=== PATIENT | male | born 1950 | race Caucasian/White ===

== ENCOUNTER 2023-12-04 17:38 | Observation (INO) | payer OTHER ==
[2023-12-04 22:29] LABS: Troponin I Less than 0.010 ng/mL (< 0.028)
[2023-12-04] MEDS ORDERED: Nitroglycerin 0.4 MG TAB (25 Tab Bottle) SL PRN (22:42)
[2023-12-04] MEDS: Rivaroxaban 10 MG TAB PO SCH (23:24)
[2023-12-04] MEDS: Doxepin HCl 10 MG CAP PO SCH (23:24)
[2023-12-04] MEDS: Nitroglycerin 2% Ointment 1 INCH/1 GM Packet TOP SCH (23:25)
[2023-12-05 02:20] VITALS: BMI 24.0
[2023-12-05 03:50] LABS: #Eosinphils 0.4 10x3/uL (0.0-0.5); #Monocytes 0.8 10x3/uL (0.0-1.1); #Neutrophils 6.2 10x3/uL (1.5-8.4); %Basophils 0.4 % (0.0-2.0); %Eosinophils 3.9 % (0.0-6.0); %Lymphocytes 26.1 % (18.0-47.0); %Monocytes 7.7 % (0.0-10.0); %Neutrophils 61.7 % (40.0-75.0); Hematocrit 41.6 % (38.8-50.0); Hemoglobin 13.7 g/dL (13.5-17.5); Mean Corpuscular HGB CONC 32.9 g/dL (32.0-36.0); Mean Corpuscular Hemoglobin 29.1 pg (27.0-33.0); Mean Corpuscular Volume 88.5 fl (81.2-95.1); Mean Platelet Volume 10.4 fl (7.4-10.4); Platelet Count 302 10x3/uL (150-450); RBC Distribution Width 14.8 % (11.5-14.5)
[2023-12-05 04:03] LABS: Anion Gap 14 mmol/L (10-20); BUN (Urea Nitrogen) 14 mg/dL (8.4-25.7); Calc. Creatinine Clearance 78 mL/min (70-130); Calcium 9.4 mg/dL (7.8-10.44); Carbon Dioxide 22 mmol/L (23-31); Chloride 106 mmol/L (98-107); Estimated GFR 85; Glucose 99 mg/dL (83-110); Magnesium 1.8 mg/dL (1.6-2.6); Sodium 138 mmol/L (136-145)
[2023-12-05] MEDS: Nitroglycerin 2% Ointment 1 INCH/1 GM Packet TOP SCH (05:46)
[2023-12-05] MEDS ORDERED: metFORMIN 500 MG TAB PO SCH (09:00)
[2023-12-05] MEDS: Lactulose 20 GM (30 mL) UDCUP PO SCH (10:18)
[2023-12-05] MEDS: Aspirin Chewable 81 MG TAB PO SCH (10:19)
[2023-12-05] MEDS: Lisinopril 20 MG TAB PO SCH (10:19)
[2023-12-05] MEDS: Sertraline 25 MG TAB PO SCH (10:19)
[2023-12-05] MEDS: Docusate 100 MG CAP PO SCH (10:20)
[2023-12-05] MEDS: Tamsulosin HCl 0.4 MG CAP PO SCH (10:20)
[2023-12-05] MEDS: Amiodarone 200 MG TAB PO SCH (10:20)
[2023-12-05 11:58] VITALS: BP 140/63; TEMP 98.2
[2023-12-05] MEDS ORDERED: Rivaroxaban 10 MG TAB PO SCH (17:00)
[2023-12-05] MEDS ORDERED: Atorvastatin Calcium 20 MG TAB PO SCH (21:00)
[2023-12-05] MEDS ORDERED: Amlodipine 5 MG TAB PO SCH (21:00)
[2023-12-07] MEDS ORDERED: Furosemide 20 MG TAB PO SCH (09:00)
== END 2023-12-05 15:56 ==
LOC: EEVIPCON → CSHTELE 20:28
PROVIDERS: ADMIT Internal Medicine; ATTEND Internal Medicine
PROC: B246ZZZ Ultrasonography of Right and Left Heart (ICD-10-PCS; principal; 2023-12-05)
DX: R07.2 Precordial pain (principal); I07.1 Rheumatic tricuspid insufficiency; E11.9 Type 2 diabetes mellitus without complications; R00.1 Bradycardia, unspecified; I11.0 Hypertensive heart disease with heart failure; I50.9 Heart failure, unspecified; K21.9 Gastro-esophageal reflux disease without esophagitis; E78.5 Hyperlipidemia, unspecified; Z90.89 Acquired absence of other organs; Z79.899 Other long term (current) drug therapy; Z87.891 Personal history of nicotine dependence
CPT/HCPCS: 36415; 36416; 80048; 83735; 85025; 93005; 93010; 93306; G0378

== ENCOUNTER 2024-09-05 13:38 | Emergency (ER) | payer OTHER ==
[2024-09-05 14:42] LABS: #Basophils 0.03 10x3/uL (0.0-0.2); #Eosinophils 0.25 10x3/uL (0.0-0.5); #Monocytes 0.75 10x3/uL (0.0-1.1); #Neutrophils 4.22 10x3/uL (1.5-8.4); %Basophils 0.4 % (0.0-2.0); %Eosinophils 3.4 % (0.0-6.0); %Monocytes 10.2 % (0.0-10.0); %Neutrophils 57.7 % (40.0-75.0); Hematocrit 37.5 % (38.8-50.0); Hemoglobin 12.8 g/dL (13.5-17.5); Mean Corpuscular HGB CONC 34.1 g/dL (32.0-36.0); Mean Corpuscular Hemoglobin 30.7 pg (27.0-33.0); Mean Corpuscular Volume 89.9 fL (81.2-95.1); Mean Platelet Volume 10.5 fL (7.4-10.4); Platelet Count 307 10x3/uL (150-450); RBC Distribution Width 13.1 % (11.5-14.5); Red Blood Cell (RBC) Count 4.17 10x6/uL (4.32-5.72); White Blood Cell (WBC) Count 7.3 10x3/uL (3.5-10.5)
[2024-09-05 15:01] LABS: ALT (SGPT) 22 U/L (8-55); AST (SGOT) 20 U/L (5-34); Albumin 3.5 g/dL (3.4-4.8); Alkaline Phosphatase 82 U/L (40-110); Anion Gap 17 mmol/L (10-20); BUN (Urea Nitrogen) 12 mg/dL (8.4-25.7); Bilirubin, Total 0.5 mg/dL (0.2-1.2); Calc. Creatinine Clearance 0 mL/min (70-130); Calcium 9.4 mg/dL (7.8-10.44); Carbon Dioxide 22 mmol/L (23-31); Chloride 106 mmol/L (98-107); Estimated GFR 83; Globulin 3.5 g/dL (2.4-3.5); Glucose 131 mg/dL (83-110); Potassium 3.8 mmol/L (3.5-5.1); Sodium 141 mmol/L (136-145)
[2024-09-05 15:08] LABS: Troponin I 0.016 ng/mL (< 0.028)
[2024-09-05 17:17] LABS: Troponin I 0.023 ng/mL (< 0.028)
[2024-09-05] MEDS ORDERED: Ipratropium/Albuterol 3 ML NEB ONE (17:17)
[2024-09-05] MEDS ORDERED: Dexamethasone 10 MG/ML VIAL SLOW IVP SCH (17:30)
== END 2024-09-05 18:39 ==
LOC: CSHERS 13:38 → EEVIPCON 13:38 → CSHERS 18:39
DX: J45.909 Unspecified asthma, uncomplicated (principal); R06.2 Wheezing; E11.9 Type 2 diabetes mellitus without complications; I25.10 Atherosclerotic heart disease of native coronary artery without angina pectoris; I50.9 Heart failure, unspecified; I48.91 Unspecified atrial fibrillation
CPT/HCPCS: 36415; 71045; 80053; 83880; 84484; 85025; 93005; 94640; 96374; J1100; J7620